=== PATIENT | male | born 1960 | race Caucasian/White ===

== ENCOUNTER → 2019-01-22 17:14 | Outpatient (CLI) | payer SELFPAY ==
[2019-01-22 17:25] LABS: Bacteria Urine None Seen
[2019-01-22 18:33] LABS: Add Manual Diff / Slide Review NO; Basophils Absolute Auto 0 /uL (0-100); Basophils Percent Auto 0.7 % (0-2); Eosinophils Absolute Auto 200 /uL (0-450); Hematocrit 44.5 % (41-53); Hemoglobin 14.7 g/dL (13.5-17.5); Lymphocytes Absolute Auto 1700 /uL (1100-4500); Lymphocytes Percent Auto 24.8 % (25-40); Mean Corpuscular HGB Conc 33.1 % (30-36); Mean Corpuscular Hemoglobin 29.2 PG (26-34); Mean Corpuscular Volume 88.1 fL (80-100); Monocytes Absolute Auto 700 /uL (0-900); Monocytes Percent Auto 10.1 % (3-14); Neutrophils Absolute Auto 4300 /uL (1500-7000); Neutrophils Percent Auto 61.4 % (50-75); Platelet Count 277 X10^3/uL (150-400); Red Blood Cell Count 5.05 X10^6/uL (4.5-5.9); Red Cell Distribution Width 13.2 % (11.6-14.8)
[2019-01-22 19:09] LABS: Alanine Aminotransferase 48 IU/L (21-72); Albumin 4.2 g/dL (3.5-5.0); Albumin Globulin Ratio 1.3 (1.0-2.8); Alkaline Phosphatase 68 U/L (38-126); Aspartate Aminotransferase 27 IU/L (17-59); BUN Creatinine Ratio 21.1 (6-22); Bilirubin Total 0.3 mg/dL (0.2-1.3); Blood Urea Nitrogen 19 mg/dL (9-20); Calcium 9.3 mg/dL (8.4-10.2); Carbon Dioxide 27 mmol/L (22-32); Chloride 104 mmol/L (98-107); Cholesterol 160 mg/dL (140-199); Estimated Glomerular Filt Rate > 60.0 mL/min (>60); Globulin 3.2 g/dL (1.7-4.1); Glucose 98 mg/dL (70-100); HDL Cholesterol 33 mg/dL (40-60); HEMOLYSIS < 15 (0-50); LDL Cholesterol Calculated 88 mg/dL (<100); Sodium 140 mmol/L (137-145); Total Protein 7.4 g/dL (6.3-8.2); Triglycerides 193 mg/dL (35-150)
[2019-01-22 19:10] LABS: Vitamin D 25 Hydroxy (D3) 34.8 ng/mL (30.0-100.0)
[2019-01-22 19:24] LABS: Thyroid Stimulating Hormone 2.98 uIU/mL (0.47-4.68)
[2019-01-22 19:35] LABS: Appearance Urine UA CLEAR; Bilirubin Urine UA NEGATIVE (NEGATIVE); Color Urine UA YELLOW; Glucose Urine UA NEGATIVE (Negative); Ketones Urine UA NEGATIVE (NEGATIVE); Leukocyte Esterase Urine UA NEGATIVE (NEGATIVE); Nitrite Urine UA NEGATIVE (Negative); Occult Blood Urine UA TRACE-LYSED (Negative); Protein Urine UA NEGATIVE (Negative); Specific Gravity Urine UA 1.025 (1.000-1.035); Urobilinogen Urine UA 0.2 E.U./dL (0.2); pH Urine UA 5.5 (4.5-8.0)
[2019-01-22 19:40] LABS: Prostate Specific Antigen Scrn 0.782 ng/mL (0.1-4.0)
[2019-01-22 19:59] LABS: Vitamin B12 425 pg/mL (239-931)
[2019-01-22 20:17] LABS: Culture Indicated Urine Cult Not Indicated; RBC Urine 0-1/HPF (0-5/HPF); Squamous Epithelial Cell Urine 0-1 /HPF; WBC Urine 0-1/HPF (0-5/HPF)
[2019-01-25 18:43] LABS: Albumin 3.9 g/dL (3.8-4.8); Alpha 1 Globulin 0.3 g/dL (0.2-0.3); Alpha 2 Globulin 0.6 g/dL (0.5-0.9); Beta 1 Globulin 0.5 g/dL (0.4-0.6); Gamma Globulin 1.3 g/dL (0.8-1.7)
== END ==
PROVIDERS: Visit Provider Internal Medicine
DX: I10 Essential (primary) hypertension (principal); R20.2 Paresthesia of skin; N40.1 Benign prostatic hyperplasia with lower urinary tract symptoms; M54.30 Sciatica, unspecified side
CPT/HCPCS: 36415; 80053; 80061; 81001; 82306; 82607; 84155; 84165; 84443; 85025; G0103

== ENCOUNTER → 2021-03-04 06:59 | Outpatient (CLI) | payer OTHER, SELFPAY ==
[2021-03-04 07:57] LABS: Alanine Aminotransferase 24 IU/L (<50); Albumin 4.1 g/dL (3.5-5.0); Albumin Globulin Ratio 1.2 (1.0-2.8); Alkaline Phosphatase 89 U/L (38-126); Aspartate Aminotransferase 29 IU/L (17-59); BUN Creatinine Ratio 17.4 (6-22); Bilirubin Total 0.8 mg/dL (0.2-1.3); Blood Urea Nitrogen 15 mg/dL (9-20); Calcium 9.3 mg/dL (8.4-10.2); Carbon Dioxide 26 mmol/L (22-32); Chloride 106 mmol/L (98-107); Cholesterol 146 mg/dL (140-199); Estimated Glomerular Filt Rate > 60.0 mL/min (>60); Globulin 3.3 g/dL (1.7-4.1); Glucose 100 mg/dL (80-110); HDL Cholesterol 32 mg/dL (40-60); HEMOLYSIS < 15 (0-50); LDL Cholesterol Calculated 90 mg/dL (<100); Potassium 4.1 mmol/L (3.4-5.1); Sodium 141 mmol/L (137-145); Total Protein 7.4 g/dL (6.3-8.2); Triglycerides 120 mg/dL (35-150)
[2021-03-04 09:17] LABS: Add Manual Diff / Slide Review NO; Basophils Absolute Auto 0 /uL (0-100); Basophils Percent Auto 0.8 % (0-2); Eosinophils Absolute Auto 200 /uL (0-450); Eosinophils Percent Auto 3.4 % (2-4); Hematocrit 42.8 % (41-53); Hemoglobin 14.2 g/dL (13.5-17.5); Lymphocytes Absolute Auto 1300 /uL (1100-4500); Lymphocytes Percent Auto 23.2 % (25-40); Mean Corpuscular HGB Conc 33.3 % (30-36); Mean Corpuscular Hemoglobin 29.4 PG (26-34); Mean Corpuscular Volume 88.2 fL (80-100); Monocytes Absolute Auto 700 /uL (0-900); Monocytes Percent Auto 11.3 % (3-14); Neutrophils Absolute Auto 3500 /uL (1500-7000); Neutrophils Percent Auto 61.3 % (50-75); Platelet Count 257 X10^3/uL (150-400); Red Blood Cell Count 4.85 X10^6/uL (4.5-5.9); Red Cell Distribution Width 13.3 % (11.6-14.8); White Blood Cell Count 5.8 X10^3/uL (4.5-11.0)
== END ==
PROVIDERS: PCP Family Medicine; Referring Provider Family Medicine; Visit Provider Family Medicine
DX: G47.33 Obstructive sleep apnea (adult) (pediatric) (principal); I10 Essential (primary) hypertension; Z12.5 Encounter for screening for malignant neoplasm of prostate; Z13.220 Encounter for screening for lipoid disorders; Z76.89 Persons encountering health services in other specified circumstances; Z99.89 Dependence on other enabling machines and devices
CPT/HCPCS: 36415; 80053; 80061; 85025; G0103

== ENCOUNTER 2024-12-31 09:27 | Outpatient (RCR) | payer BC, SELFPAY ==
--- NOTE | 2024-12-31 10:38 | OT.OP.DC ---
Visit Care Team Role Provider Type Sanaz Womack MD Attending Provider Physician Family Provider Primary Care Provider Referring Provider Address: 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 and R hand dominant; he was referred to outpatient OT by PCP d/t [id number]. Medical History is significant for back pain, blood pressure concerns, vision problems and stroke. 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 Most recent hospital stay was to 12/19/24. Andrew presents wearing pre-stroke prescription glasses; he reports diplopia has resolved and bilateral R hemianopsia w/ L eye hemianopsia beginning to resolve. He has not seen aerographer or neuro opthalmologist since stroke; no gait deviation was observed or weight shift sitting/head at midline in sitting. He reports he is struggling w/ reading. He has been evaluated by speech therapist; he reports word finding difficulties, reading comprehension difficulties, and executive function difficulties, relative to functional problem solving and sequencing. He will be evaluated by PT 01/06/25. He is ambulating without mobility AE ; no c/o w/ forward trunk flexion touching toes in sitting. Report of engaging in yoga previous date. He reports no difficulties w/ self care tasks; he is not driving per own choice. He completed Pain Assessment Grid and indciated 4 out of 10 on pain scale relative to R scapula, although, no c/o w/ UE AROM screening. He demonstrated bilateral UE AROM WFL; no errors w/ bilateral opposition w/ EO or EC. Dynamometer II Strength Testing Results with elbow in 90 degrees Flexion = R hot saw helper 110.0# of force (compared to same-aged peers 60-64 y.o. males 89.7 +/- 20.4# of force) versus L hot saw helper 98.0# of force (compared to same-aged peers 60-64 y.o. males 76.8 +/- 20.3 # of force). Lateral Tyler Pinch = R lateral pinch 25.0# of force (compared to same- aged peers 60-64 y.o. males 23 .2 +/- 5.4# of force) versus L lateral pinch 22.5# of force (compared to same-aged peers 60-64 y.o. males 22.2 +/- 4.1# of force). Tip Pinch = R tip pinch 13.0# of force (compared to same-aged peers 60-64 y.o. males 15.8 +/- 3.9# of force) versus L tip pinch 14.5# of force (compared to same-aged peers 60-64 y.o. males 15.3 +/ - 3.7# of force). 3-Jaw Pinch = R 3-jaw pinch 23.0# of force (compared to same-aged peers 60-64 y.o. males 21.8 +/- 3.3# of force) versus L 3-jaw pinch 19.0# of force (compared to same-aged peers 60-64 y.o. males 21.2 +/- 3.2# of force) . No further outpatient OT is needed at this time. Recommend d/c from outpatient OT. Plan Patient Recommendations Discharge from Occupational Therapy Functional Wrist/Hand Scan Hand Side Sensory Assessment Sensory Profile2
== END 2025-01-01 13:50 | disposition home or self-care (01) ==
LOC: OT 09:27
PROVIDERS: Family Provider Family Medicine; PCP Family Medicine; Referring Provider Family Medicine; Visit Provider Family Medicine
DX: I61.9 Nontraumatic intracerebral hemorrhage, unspecified (principal); R47.89 Other speech disturbances; I69.398 Other sequelae of cerebral infarction; H53.469 Homonymous bilateral field defects, unspecified side; H53.2 Diplopia
CPT/HCPCS: 97165

== ENCOUNTER 2025-02-05 10:45 | Outpatient (RCR) | payer BC, SELFPAY ==
--- NOTE | 2025-01-06 13:37 | PT.OIE ---
Current Diagnoses Diplopia (01/06/25) Homonymous bilateral field defects, unspecified side (01/06/25) Nontraumatic intracerebral hemorrhage, unspecified (01/06/25) Other sequelae of cerebral infarction (01/06/25) Other speech disturbances (01/06/25) Past Medical History (Last Updated 09/06/21 @ 12:04 by Tripp Robledo DO) Acute pain of left knee Allergies (~2005) BMI 32.0-32.9,adult Chronic back pain (~2018) Hypertension (~2009) Low HDL (under 40) Low libido WARREN on CPAP (~1999) Screening for hyperlipidemia Screening for prostate cancer Past Surgical History (Last Updated 03/14/21 @ 22:03 by Yesi Taylor) Anesthesia History of dental surgery (~2011) History of vasectomy (~2001) Visit Care Team Role Provider Type Sanaz Womack MD Attending Provider Physician Family Provider Primary Care Provider Referring Provider Specialty: Family Practice MUSIC PROMOTER Address: [address] [place] [address] Email: [email or web address] Physical Therapy Initial Evaluation PT-OP-A Visit Information Start: 01/04/25 08:47 Freq: Status: Active Protocol: Document 01/06/25 07:36 MB (Rec: 01/06/25 08:17 MB [id number]) Out-Patient Physical Therapy Visit Information Visit Information Visit Type Initial Evaluation Visit Note 25 visits split between PT/OT/ ST: no OT needs per pt and , goal is for speech and vision therapy. Speech may need more treatments and so will try to keep PT treatments between 4-6 treatments Visit Start Time 07:36 Visit Stop Time 08:16 Visit Number 1 PT-OP-B Current Condition Start: 01/04/25 08:47 Freq: Status: Active Protocol: Document 01/06/25 07:36 MB (Rec: 01/06/25 08:17 MB [id number]) Current Condition History of Current Condition Onset Date 12/12/24 Current Complaints Vision changes and speech problems, trouble with math and reading History of Current Condition reports that pt had 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 He was denied inpatient rehab d/t no acute OT needs. He has had OPOT consult and was discharged. He had OPSLP consult and he has four treatments schedued. Pt and state that his biggest problems are vision and speech. Pt reports that his balance is fair. He takes extra precaution when going down steps. Pt report double and blurred vision on the right side. states that he has hemianopsia. Pt has been out of work this month and he heads back tomorrow. 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 He has a history of spinal stenosis. does report foot drop on the right. Pt is sleeping more than usual. He is sleeping 9 hours a night and taking a 2 hour nap during the day. Treatment Goals Patient/Caregiver Goals Pt is not sure that he needs physical therapy. PT-OP-C Subjective Start: 01/04/25 08:47 Freq: Status: Active Protocol: Document 01/06/25 07:36 MB (Rec: 01/06/25 08:17 MB [id number]) OP-PT Subjective Patient Comments Patient Comments See history of current condition. PT-OP-D Balance Start: 01/04/25 08:47 Freq: Status: Active Protocol: Document 01/06/25 07:36 MB (Rec: 01/06/25 08:17 MB [id number]) OP-PT Balance Assessment Standing Balance Standing Balance Comments Pt standing: Romberg EO and EC both WNLs, increased sway with EC Magdaleno Fall Scale Copyright Permission PT-OP-G Mobility & Gait Start: 01/04/25 08:47 Freq: Status: Active Protocol: Document 01/06/25 07:36 MB (Rec: 01/06/25 08:17 MB [id number]) OP Gait Assessment Comments Gait Comments Mild whip of right leg and foot drop right foot with gait PT-OP-H Neuro Start: 01/06/25 08:29 Freq: Status: Active Protocol: Document 01/06/25 07:36 MB (Rec: 01/06/25 08:31 MB [id number]) Sensation Evaluation Comments Summary Comments Pt denies paresthesias Coordination Evaluation Upper Extremity Tests Left Finger to Finger Test Normal Performance Pronation/Supination Test Normal Performance Right Alternate Nose to Finger Test Minimal Impairment Pronation/Supination Test Normal Performance Lower Extremity Tests Left Heel on Parker Test Normal Performance Foot Tapping Test Normal Performance Right Heel on Parker Test Minimal Impairment Foot Tapping Test Normal Performance PT-OP-M Strength Start: 01/06/25 08:22 Freq: Status: Active Protocol: Document 01/06/25 07:36 MB (Rec: 01/06/25 08:28 MB [id number]) Hip Strength Hip Manual Muscle Testing Left Comments Peformed in sitting Right Flexion (L2) 5 Normal Comments Performed in sitting Knee Strength Knee Manual Muscle Testing Left Flexion (S2) 5 Normal Extension (L3) 5 Normal Comments Peformed in sitting Right Flexion (S2) 5 Normal Extension (L3) 5 Normal Comments Peformed in sitting Ankle/Foot Strength Ankle and Foot Manual Muscle Testing Left Dorsiflexion (L4) 5 Normal Right Dorsiflexion (L4) 4+ Good+ Toe Strength Toe Manual Muscle Testing Left Great Toe Extension 5 Normal Right Great Toe Extension 4+ Good+ PT-OP-Q Treatments Start: 01/04/25 08:47 Freq: Status: Active Protocol: Document 01/06/25 07:36 MB (Rec: 01/06/25 08:28 MB [id number]) Self-Care/Home Management Treatment Education Other Education Education to pt and about benefits of OPPT trial for balance and vision exercises, possible vision exercises by teammate PT who has had more vision training than this PT, benefits of neuropthalmologist consult to assess hemianopsia and possible prism glasses, clear with physician before driving, benefts of local community stroke support group PT-OP-T Assessment and Plan Start: 01/04/25 08:47 Freq: Status: Active Protocol: Document 01/06/25 07:36 MB (Rec: 01/06/25 08:28 MB [id number]) Physical Therapy Assessment Rehab Potential Rehabilitation Potential Good Evaluation Complexity Number of Personal Factors/Comorbidities 1-2 Number of Body Systems Impaired 1-2 Clinical Presentation at Evaluation Evolving Impairments Impairments Balance,Coordination,Gait,Pain ,Posture,ROM,Strength, Vestibular,Visual Motor Goals Two Impairment Lack of HEP Impairment . Short Term Goal (STG) . STG Duration . Half-Way Goal (LTG) Pt will perform progressive HEP with I including balance and visual exercises to improve balance and scanning. LTG Duration 4-6 treatments within 6 weeks One Impairment Evidence of imbalance Tractor Mechanic Helper Goal (LTG) Pt will perform WNLs on FGA to decrease fall risk. LTG Duration 4-6 treatments within 6 weeks Assessment Summary Assessment Pt is a 64 y/o male s/p left parieto-occipital IPH 12/12/24. He has residual right ankle and great to weakness, mild whip of leg and foot drop with gait and more severe right hemianopsia symptoms. Visual scan today reveals the ongoing vision issues. Pt will benefit from 4-6 PT treatments to work on balance and visual exercises. 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 Recommend neuro -opthamologist referral.
--- NOTE | 2025-01-06 13:37 | PT.OPPOC ---
Physical, Occupational & Speech Therapy At [facility] Current Diagnoses Diplopia (01/06/25) Homonymous bilateral field defects, unspecified side (01/06/25) Nontraumatic intracerebral hemorrhage, unspecified (01/06/25) Other sequelae of cerebral infarction (01/06/25) Other speech disturbances (01/06/25) Visit Care Team Role Provider Type Sanaz Womack MD Attending Provider Physician Family Provider Primary Care Provider Referring Provider Specialty: Family Practice WALL TAPER HELPER Address: [place], [address] Email: [email or web address] Plan Of Care PT-OP-B Current Condition Start: 01/04/25 08:47 Freq: Status: Active Protocol: Document 01/06/25 07:36 MB (Rec: 01/06/25 08:17 MB [id number]) Current Condition History of Current Condition Onset Date 12/12/24 Current Complaints Vision changes and speech problems, trouble with math and reading History of Current Condition reports that pt had 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 He was denied inpatient rehab d/t no acute OT needs. He has had OPOT consult and was discharged. He had OPSLP consult and he has four treatments schedued. Pt and state that his biggest problems are vision and speech. Pt reports that his balance is fair. He takes extra precaution when going down steps. Pt report double and blurred vision on the right side. states that he has hemianopsia. Pt has been out of work this month and he heads back tomorrow. 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 He has a history of spinal stenosis. does report foot drop on the right. Pt is sleeping more than usual. He is sleeping 9 hours a night and taking a 2 hour nap during the day. Treatment Goals Patient/Caregiver Goals Pt is not sure that he needs physical therapy. PT-OP-T Assessment and Plan Start: 01/04/25 08:47 Freq: Status: Active Protocol: Document 01/06/25 07:36 MB (Rec: 01/06/25 08:28 MB [id number]) Physical Therapy Assessment Rehab Potential Rehabilitation Potential Good Evaluation Complexity Number of Personal Factors/Comorbidities 1-2 Number of Body Systems Impaired 1-2 Clinical Presentation at Evaluation Evolving Impairments Impairments Balance,Coordination,Gait,Pain ,Posture,ROM,Strength, Vestibular,Visual Motor Goals Two Impairment Lack of HEP Impairment . Short Term Goal (STG) . STG Duration . Work Ticket Distributor Goal (LTG) Pt will perform progressive HEP with I including balance and visual exercises to improve balance and scanning. LTG Duration 4-6 treatments within 6 weeks One Impairment Evidence of imbalance Work Ticket Distributor Goal (LTG) Pt will perform WNLs on FGA to decrease fall risk. LTG Duration 4-6 treatments within 6 weeks Assessment Summary Assessment Pt is a 64 y/o male s/p left parieto-occipital IPH 12/12/24. He has residual right ankle and great to weakness, mild whip of leg and foot drop with gait and more severe right hemianopsia symptoms. Visual scan today reveals the ongoing vision issues. Pt will benefit from 4-6 PT treatments to work on balance and visual exercises. 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 Recommend neuro -opthamologist referral. Plan of Care Dates Plan of Care Start Date 01/06/25 Plan of Care End Date 02/24/25 Electronically Signed by: Viridiana Mcneil PT 01/06/25 [id number] If you are in agreement with this Plan of Care, please return a signed and dated copy. I have reviewed this Plan of Care and certify that the skilled therapy services above are required to meet the patient?s needs. Physician Signature Date Printed Name and Credentials Clinical Instructor Signature Printed Name and Credentials
--- NOTE | 2025-01-14 11:30 | PT.OTN ---
Current Diagnoses Diplopia (01/14/25) Homonymous bilateral field defects, unspecified side (01/14/25) Nontraumatic intracerebral hemorrhage, unspecified (01/14/25) Other sequelae of cerebral infarction (01/14/25) Other speech disturbances (01/14/25) Physical Therapy Treatment Note PT-OP-A Visit Information Start: 01/04/25 08:47 Freq: Status: Active Protocol: Document 01/14/25 10:42 MB (Rec: 01/14/25 11:30 MB [id number]) Out-Patient Physical Therapy Visit Information Visit Information Visit Type Treatment Note Visit Note is Aaliyah 25 visits split between PT/OT/ ST: no OT needs per pt and , goal is for speech and vision therapy. Speech may need more treatments and so will try to keep PT treatments between 4-6 treatments Visit Start Time 10:42 Visit Stop Time 11:12 Visit Number 2 Evaluation Information Evaluation Date 01/06/25 PT-OP-B Current Condition Start: 01/04/25 08:47 Freq: Status: Active Protocol: Document 01/06/25 07:36 MB (Rec: 01/06/25 08:17 MB [id number]) Current Condition History of Current Condition Onset Date 12/12/24 Current Complaints Vision changes and speech problems, trouble with math and reading History of Current Condition reports that pt had 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 He was denied inpatient rehab d/t no acute OT needs. He has had OPOT consult and was discharged. He had OPSLP consult and he has four treatments schedued. Pt and state that his biggest problems are vision and speech. Pt reports that his balance is fair. He takes extra precaution when going down steps. Pt report double and blurred vision on the right side. states that he has hemianopsia. Pt has been out of work this month and he heads back tomorrow. 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 He has a history of spinal stenosis. does report foot drop on the right. Pt is sleeping more than usual. He is sleeping 9 hours a night and taking a 2 hour nap during the day. Treatment Goals Patient/Caregiver Goals Pt is not sure that he needs physical therapy. 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 He did [place], an easy one very slowly. The vision on the right side is th biggest thing stopping him from seeing things. PT-OP-D Balance Start: 01/04/25 08:47 Freq: Status: Active Protocol: Document 01/06/25 07:36 MB (Rec: 01/06/25 08:17 MB [id number]) OP-PT Balance Assessment Standing Balance Standing Balance Comments Pt standing: Romberg EO and EC both WNLs, increased sway with EC Magdaleno Fall Scale Copyright Permission PT-OP-G Mobility & Gait Start: 01/04/25 08:47 Freq: Status: Active Protocol: Document 01/06/25 07:36 MB (Rec: 01/06/25 08:17 MB [id number]) OP Gait Assessment Comments Gait Comments Mild whip of right leg and foot drop right foot with gait PT-OP-H Neuro Start: 01/06/25 08:29 Freq: Status: Active Protocol: Document 01/06/25 07:36 MB (Rec: 01/06/25 08:31 MB [id number]) Sensation Evaluation Comments Summary Comments Pt denies paresthesias Coordination Evaluation Upper Extremity Tests Left Finger to Finger Test Normal Performance Pronation/Supination Test Normal Performance Right Alternate Nose to Finger Test Minimal Impairment Pronation/Supination Test Normal Performance Lower Extremity Tests Left Heel on Parker Test Normal Performance Foot Tapping Test Normal Performance Right Heel on Parker Test Minimal Impairment Foot Tapping Test Normal Performance PT-OP-M Strength Start: 01/06/25 08:22 Freq: Status: Active Protocol: Document 01/06/25 07:36 MB (Rec: 01/06/25 08:28 MB [id number]) Hip Strength Hip Manual Muscle Testing Left Comments Peformed in sitting Right Flexion (L2) 5 Normal Comments Performed in sitting Knee Strength Knee Manual Muscle Testing Left Flexion (S2) 5 Normal Extension (L3) 5 Normal Comments Peformed in sitting Right Flexion (S2) 5 Normal Extension (L3) 5 Normal Comments Peformed in sitting Ankle/Foot Strength Ankle and Foot Manual Muscle Testing Left Dorsiflexion (L4) 5 Normal Right Dorsiflexion (L4) 4+ Good+ Toe Strength Toe Manual Muscle Testing Left Great Toe Extension 5 Normal Right Great Toe Extension 4+ Good+ PT-OP-Q Treatments Start: 01/04/25 08:47 Freq: Status: Active Protocol: Document 01/14/25 10:42 MB (Rec: 01/14/25 11:30 MB [id number]) Neuro Re-Education Treatment Balance Activities SLS Details HEP and written on folder Comments Left 6 sec, right 7 sec, given for home exercise up for 1 minute FGA activites for home Details HEP and handout given Comments Practiced several and setted on the following sliding fingernail along the wall: 1 rep of each makes a set and pt to perform 4-5 sets once a day FGA Comments FGA score is 22/30, indicative of increased risk of falling with most trouble with gait with EC and tandem gait and needing to use rail for steps Movement Re-Education Movement Re-education Activities DVA eye chart reading from upper left to lower right eye chart letters, saying out loud and working inwards and working on pointing and coordination PT-OP-T Assessment and Plan Start: 01/04/25 08:47 Freq: Status: Active Protocol: Document 01/14/25 10:42 MB (Rec: 01/14/25 11:30 MB [id number]) Physical Therapy Assessment Rehab Potential Rehabilitation Potential Good Evaluation Complexity Number of Personal Factors/Comorbidities 1-2 Number of Body Systems Impaired 1-2 Clinical Presentation at Evaluation Evolving Impairments Impairments Balance,Coordination,Gait,Pain ,Posture,ROM,Strength, Vestibular,Visual Motor Goals Two Impairment Lack of HEP Impairment . Short Term Goal (STG) . STG Duration . Care Home Goal (LTG) Pt will perform progressive HEP with I including balance and visual exercises to improve balance and scanning. LTG Duration 4-6 treatments within 6 weeks One Impairment Evidence of imbalance Condemnation Engineer Goal (LTG) Pt will perform WNLs on FGA to decrease fall risk. LTG Duration 4-6 treatments within 6 weeks Assessment Summary Assessment Initiated visual scanning/ saccadic and balance exercises today. Discussed reading different fonts out loud and working on writing at home. Physical Therapy Plan Frequency and Duration Frequency of Treatment 4-6 treatments Duration of treatment (weeks) 6 Plan of Care Start Date 01/06/25 Plan of Care End Date 02/24/25 Therapeutic Interventions Therapeutic Interventions Balance Training,Canalithic Repositioning,Coordination Training,Gait Training,Home Exercise Program,Joint Mobilizations,Manual Therapy, Neuromuscular Re-education, Patient/Caregiver Education, Self-Care/Home Management,Soft Tissue Mobilization,Taping, Therapeutic Activities, Therapeutic Exercises, Vestibular Rehabilitation Modalities Cold Pack/Ice Massage,Electric Stimulation,Hot Packs Next Visit Focus/Plan Next Note Type Treatment Note Next Visit Plan Next (with DIE SETTER): [facility] balance program over next two treatments and determine appropriate ankle weight resistance and rec for pt and . Note: tandem walking forward and backward and SLS already in HEP. Please add hip extension with ankle weights after standing hip abduction in [place]: further visual work , possible Facundo string exercises, other saccadic and scanning work
--- NOTE | 2025-01-28 08:56 | PT.OTN ---
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/28/25) Nontraumatic intracerebral hemorrhage, unspecified (01/28/25) Other sequelae of cerebral infarction (01/28/25) Other speech disturbances (01/28/25) Physical Therapy Treatment Note PT-OP-A Visit Information Start: 01/04/25 08:47 Freq: Status: Active Protocol: Document 01/28/25 08:17 MB (Rec: 01/28/25 08:55 MB [id number]) Out-Patient Physical Therapy Visit Information Visit Information Visit Type Treatment Note Visit Note 25 visits split between PT/OT/ ST Prog note by 02/06/25 is Aaliyah Visit Start Time 08:17 Visit Stop Time 08:57 Visit Number 3 Evaluation Information Evaluation Date 01/06/25 PT-OP-B Current Condition Start: 01/04/25 08:47 Freq: Status: Active Protocol: Document 01/06/25 07:36 MB (Rec: 01/06/25 08:17 MB [id number]) Current Condition History of Current Condition Onset Date 12/12/24 Current Complaints Vision changes and speech problems, trouble with math and reading History of Current Condition reports that pt had 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 He was denied inpatient rehab d/t no acute OT needs. He has had OPOT consult and was discharged. He had OPSLP consult and he has four treatments schedued. Pt and state that his biggest problems are vision and speech. Pt reports that his balance is fair. He takes extra precaution when going down steps. Pt report double and blurred vision on the right side. states that he has hemianopsia. Pt has been out of work this month and he heads back tomorrow. 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 He has a history of spinal stenosis. does report foot drop on the right. Pt is sleeping more than usual. He is sleeping 9 hours a night and taking a 2 hour nap during the day. Treatment Goals Patient/Caregiver Goals Pt is not sure that he needs physical therapy. PT-OP-C Subjective Start: 01/04/25 08:47 Freq: Status: Active Protocol: Document 01/28/25 08:17 MB (Rec: 01/28/25 08:55 MB [id number]) OP-PT Subjective Patient Comments Patient Comments Pt saw an opthamologist but not a neuro opthamologist. That doctor stated that he did not need prisms. PT-OP-D Balance Start: 01/04/25 08:47 Freq: Status: Active Protocol: Document 01/06/25 07:36 MB (Rec: 01/06/25 08:17 MB [id number]) OP-PT Balance Assessment Standing Balance Standing Balance Comments Pt standing: Romberg EO and EC both WNLs, increased sway with EC Magdaleno Fall Scale Copyright Permission PT-OP-G Mobility & Gait Start: 01/04/25 08:47 Freq: Status: Active Protocol: Document 01/06/25 07:36 MB (Rec: 01/06/25 08:17 MB [id number]) OP Gait Assessment Comments Gait Comments Mild whip of right leg and foot drop right foot with gait PT-OP-H Neuro Start: 01/06/25 08:29 Freq: Status: Active Protocol: Document 01/06/25 07:36 MB (Rec: 01/06/25 08:31 MB [id number]) Sensation Evaluation Comments Summary Comments Pt denies paresthesias Coordination Evaluation Upper Extremity Tests Left Finger to Finger Test Normal Performance Pronation/Supination Test Normal Performance Right Alternate Nose to Finger Test Minimal Impairment Pronation/Supination Test Normal Performance Lower Extremity Tests Left Heel on Parker Test Normal Performance Foot Tapping Test Normal Performance Right Heel on Parker Test Minimal Impairment Foot Tapping Test Normal Performance PT-OP-M Strength Start: 01/06/25 08:22 Freq: Status: Active Protocol: Document 01/06/25 07:36 MB (Rec: 01/06/25 08:28 MB [id number]) Hip Strength Hip Manual Muscle Testing Left Comments Peformed in sitting Right Flexion (L2) 5 Normal Comments Performed in sitting Knee Strength Knee Manual Muscle Testing Left Flexion (S2) 5 Normal Extension (L3) 5 Normal Comments Peformed in sitting Right Flexion (S2) 5 Normal Extension (L3) 5 Normal Comments Peformed in sitting Ankle/Foot Strength Ankle and Foot Manual Muscle Testing Left Dorsiflexion (L4) 5 Normal Right Dorsiflexion (L4) 4+ Good+ Toe Strength Toe Manual Muscle Testing Left Great Toe Extension 5 Normal Right Great Toe Extension 4+ Good+ PT-OP-Q Treatments Start: 01/04/25 08:47 Freq: Status: Active Protocol: Document 01/28/25 08:17 MB (Rec: 01/28/25 08:55 MB [id number]) Therapeutic Exercises Sitting Exercises [place] knee extension Sitting Exercise Name HEP and handouts provided Equipment Used 2 lb ankle weights Reps/Minutes 30 alternating reps, 2 sets Standing Exercises [place] heel raises Standing Exercise Name HEP and handouts provided Equipment Used 2 lb ankle weights, ballet bar Reps/Minutes 30 reps Extension added with [place] Standing Exercise Name HEP and handouts provided Equipment Used 2 lb ankle weights, ballet bar Reps/Minutes 30 alternating reps, 2 sets [place] hamstring curls Standing Exercise Name HEP and handouts provided Equipment Used 2 lb ankle weights, ballet bar Reps/Minutes 30 alternating reps, 2 sets [place] hip abd Standing Exercise Name HEP and handouts provided Equipment Used 2 lb ankle weights, ballet bar Reps/Minutes 30 alternating reps, 2 sets PT-OP-T Assessment and Plan Start: 01/04/25 08:47 Freq: Status: Active Protocol: Document 01/28/25 08:17 MB (Rec: 01/28/25 08:55 MB [id number]) Physical Therapy Assessment Rehab Potential Rehabilitation Potential Good Evaluation Complexity Number of Personal Factors/Comorbidities 1-2 Number of Body Systems Impaired 1-2 Clinical Presentation at Evaluation Evolving Impairments Impairments Balance,Coordination,Gait,Pain ,Posture,ROM,Strength, Vestibular,Visual Motor Goals Two Impairment Lack of HEP Impairment . Short Term Goal (STG) . STG Duration . Communications Electrician Supervisor Goal (LTG) Pt will perform progressive HEP with I including balance and visual exercises to improve balance and scanning. LTG Duration 4-6 treatments within 6 weeks One Impairment Evidence of imbalance Alf Goal (LTG) Pt will perform WNLs on FGA to decrease fall risk. LTG Duration 4-6 treatments within 6 weeks Assessment Summary Assessment Initiated [facility] and will complete balance exercise training next treatment date. Pt to start with 2 lb ankle weights at home and nearby and performs exercises with AROM today as well. Physical Therapy Plan Frequency and Duration Frequency of Treatment 4-6 treatments Duration of treatment (weeks) 6 Plan of Care Start Date 01/06/25 Plan of Care End Date 02/24/25 Therapeutic Interventions Therapeutic Interventions Balance Training,Canalithic Repositioning,Coordination Training,Gait Training,Home Exercise Program,Joint Mobilizations,Manual Therapy, Neuromuscular Re-education, Patient/Caregiver Education, Self-Care/Home Management,Soft Tissue Mobilization,Taping, Therapeutic Activities, Therapeutic Exercises, Vestibular Rehabilitation Modalities Cold Pack/Ice Massage,Electric Stimulation,Hot Packs Next Visit Focus/Plan Next Note Type Treatment Note Next Visit Plan Complete [place] STS, squats balance exercises (all strengthening done) With River: consider chano string and any other visual exercises, defer to River and d /c as River feels appropriate, does not need all three visits if not needed and does not need to see Viridiana again.
--- NOTE | 2025-01-30 08:59 | PT.OTN ---
Current Diagnoses Diplopia (01/30/25) Homonymous bilateral field defects, unspecified side (01/30/25) Nontraumatic intracerebral hemorrhage, unspecified (01/30/25) Other sequelae of cerebral infarction (01/30/25) Other speech disturbances (01/30/25) Physical Therapy Treatment Note PT-OP-A Visit Information Start: 01/04/25 08:47 Freq: Status: Active Protocol: Document 01/30/25 08:19 SP (Rec: 01/30/25 09:02 SP [id number]) Out-Patient Physical Therapy Visit Information Visit Information Visit Type Treatment Note Visit Note 25 visits split between PT/OT/ ST Prog note by 02/06/25 is Aaliyah Visit Start Time 08:19 Visit Stop Time 08:59 Visit Number 4 Number of MULTI CARE TECHNICIAN Visits 1 Evaluation Information Evaluation Date 01/06/25 PT-OP-B Current Condition Start: 01/04/25 08:47 Freq: Status: Active Protocol: Document 01/06/25 07:36 MB (Rec: 01/06/25 08:17 MB [id number]) Current Condition History of Current Condition Onset Date 12/12/24 Current Complaints Vision changes and speech problems, trouble with math and reading History of Current Condition reports that pt had 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 He was denied inpatient rehab d/t no acute OT needs. He has had OPOT consult and was discharged. He had OPSLP consult and he has four treatments schedued. Pt and state that his biggest problems are vision and speech. Pt reports that his balance is fair. He takes extra precaution when going down steps. Pt report double and blurred vision on the right side. states that he has hemianopsia. Pt has been out of work this month and he heads back tomorrow. 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 He has a history of spinal stenosis. does report foot drop on the right. Pt is sleeping more than usual. He is sleeping 9 hours a night and taking a 2 hour nap during the day. Treatment Goals Patient/Caregiver Goals Pt is not sure that he needs physical therapy. PT-OP-C Subjective Start: 01/04/25 08:47 Freq: Status: Active Protocol: Document 01/30/25 08:19 SP (Rec: 01/30/25 09:02 SP [id number]) OP-PT Subjective Patient Comments Patient Comments Pt reported felt good after last tx. PT-OP-D Balance Start: 01/04/25 08:47 Freq: Status: Active Protocol: Document 01/06/25 07:36 MB (Rec: 01/06/25 08:17 MB [id number]) OP-PT Balance Assessment Standing Balance Standing Balance Comments Pt standing: Romberg EO and EC both WNLs, increased sway with EC Magdaleno Fall Scale Copyright Permission PT-OP-G Mobility & Gait Start: 01/04/25 08:47 Freq: Status: Active Protocol: Document 01/06/25 07:36 MB (Rec: 01/06/25 08:17 MB [id number]) OP Gait Assessment Comments Gait Comments Mild whip of right leg and foot drop right foot with gait PT-OP-H Neuro Start: 01/06/25 08:29 Freq: Status: Active Protocol: Document 01/06/25 07:36 MB (Rec: 01/06/25 08:31 MB [id number]) Sensation Evaluation Comments Summary Comments Pt denies paresthesias Coordination Evaluation Upper Extremity Tests Left Finger to Finger Test Normal Performance Pronation/Supination Test Normal Performance Right Alternate Nose to Finger Test Minimal Impairment Pronation/Supination Test Normal Performance Lower Extremity Tests Left Heel on Parker Test Normal Performance Foot Tapping Test Normal Performance Right Heel on Parker Test Minimal Impairment Foot Tapping Test Normal Performance PT-OP-M Strength Start: 01/06/25 08:22 Freq: Status: Active Protocol: Document 01/06/25 07:36 MB (Rec: 01/06/25 08:28 MB [id number]) Hip Strength Hip Manual Muscle Testing Left Comments Peformed in sitting Right Flexion (L2) 5 Normal Comments Performed in sitting Knee Strength Knee Manual Muscle Testing Left Flexion (S2) 5 Normal Extension (L3) 5 Normal Comments Peformed in sitting Right Flexion (S2) 5 Normal Extension (L3) 5 Normal Comments Peformed in sitting Ankle/Foot Strength Ankle and Foot Manual Muscle Testing Left Dorsiflexion (L4) 5 Normal Right Dorsiflexion (L4) 4+ Good+ Toe Strength Toe Manual Muscle Testing Left Great Toe Extension 5 Normal Right Great Toe Extension 4+ Good+ PT-OP-Q Treatments Start: 01/04/25 08:47 Freq: Status: Active Protocol: Document 01/30/25 08:19 SP (Rec: 01/30/25 09:02 SP [id number]) Therapeutic Exercises Sitting Exercises [place] Sit to Stands Sitting Exercise Name added with HO Equipment Used BIG chair arms across chest Reps/Minutes 10 reps [place] Mini squat Sitting Exercise Name added with HO Reps/Minutes 10 reps [place] knee extension Sitting Exercise Name HEP reviewed Equipment Used 2 lb ankle weights Reps/Minutes 30 alternating reps, 2 sets Standing Exercises [place] heel raises Standing Exercise Name HEP reviewed Equipment Used 2 lb ankle weights, ballet bar Reps/Minutes 30 reps Extension added with [place] Standing Exercise Name HEP reviewed Equipment Used 2 lb ankle weights, ballet bar Reps/Minutes 30 alternating reps, 2 sets [place] hamstring curls Standing Exercise Name HEP reviewed Equipment Used 2 lb ankle weights, ballet bar Reps/Minutes 30 alternating reps, 2 sets [place] hip abd Standing Exercise Name HEP reviewed Equipment Used 2 lb ankle weights, ballet bar Reps/Minutes 30 alternating reps, 2 sets Neuro Re-Education Treatment Balance Activities [place] Figure 8 Comments around chair change of direction- good balance [place] Heel, Toe Walking Reps/Duration 20 ft x2 laps [place] Tight Rope Walking Reps/Duration 10 ft x2 laps Comments arms [place] SLS Comments L 8 sec R 13 sec [place] Tandem Reps/Duration 30 sec Comments each foot position PT-OP-T Assessment and Plan Start: 01/04/25 08:47 Freq: Status: Active Protocol: Document 01/30/25 08:19 SP (Rec: 01/30/25 09:02 SP [id number]) Physical Therapy Assessment Goals Two Impairment Lack of HEP Impairment . Short Term Goal (STG) . STG Duration . Beam Racker Goal (LTG) Pt will perform progressive HEP with I including balance and visual exercises to improve balance and scanning. LTG Duration 4-6 treatments within 6 weeks One Impairment Evidence of imbalance Skilled Nursing Goal (LTG) Pt will perform WNLs on FGA to decrease fall risk. LTG Duration 4-6 treatments within 6 weeks Assessment Summary Assessment Pt good effort with [place] HEP progressed to squats and balance walking drills addition today with slight sways: tandem and SLS but no LOB. Will progress at home. Pt is set up witho PT next to progress Vestibular and vision PT. Physical Therapy Plan Frequency and Duration Frequency of Treatment 4-6 treatments Duration of treatment (weeks) 6 Plan of Care Start Date 01/06/25 Plan of Care End Date 02/24/25 Therapeutic Interventions Therapeutic Interventions Balance Training,Canalithic Repositioning,Coordination Training,Gait Training,Home Exercise Program,Joint Mobilizations,Manual Therapy, Neuromuscular Re-education, Patient/Caregiver Education, Self-Care/Home Management,Soft Tissue Mobilization,Taping, Therapeutic Activities, Therapeutic Exercises, Vestibular Rehabilitation Modalities Cold Pack/Ice Massage,Electric Stimulation,Hot Packs Next Visit Focus/Plan Next Note Type Treatment Note Next Visit Plan PT River to continue PT consider chano string and any other visual exercises
--- NOTE | 2025-02-02 12:16 | PT.OTN ---
Current Diagnoses Diplopia (02/02/25) Homonymous bilateral field defects, unspecified side (02/02/25) Nontraumatic intracerebral hemorrhage, unspecified (02/02/25) Other sequelae of cerebral infarction (02/02/25) Other speech disturbances (02/02/25) Physical Therapy Treatment Note PT-OP-A Visit Information Start: 01/04/25 08:47 Freq: Status: Active Protocol: Document 02/02/25 10:45 DCW (Rec: 02/02/25 11:32 DCW [id number]) Out-Patient Physical Therapy Visit Information Visit Information Visit Type Progress Note Visit Note 25 visits split between PT/OT/ ST Prog note by 02/06/25 is Aaliyah Visit Start Time 10:45 Visit Stop Time 11:30 Visit Number 5 Number of VENDING MACHINE SERVICER Visits 0 Evaluation Information Evaluation Date 01/06/25 PT-OP-B Current Condition Start: 01/04/25 08:47 Freq: Status: Active Protocol: Document 01/06/25 07:36 MB (Rec: 01/06/25 08:17 MB [id number]) Current Condition History of Current Condition Onset Date 12/12/24 Current Complaints Vision changes and speech problems, trouble with math and reading History of Current Condition reports that pt had 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 He was denied inpatient rehab d/t no acute OT needs. He has had OPOT consult and was discharged. He had OPSLP consult and he has four treatments schedued. Pt and state that his biggest problems are vision and speech. Pt reports that his balance is fair. He takes extra precaution when going down steps. Pt report double and blurred vision on the right side. states that he has hemianopsia. Pt has been out of work this month and he heads back tomorrow. 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 He has a history of spinal stenosis. does report foot drop on the right. Pt is sleeping more than usual. He is sleeping 9 hours a night and taking a 2 hour nap during the day. Treatment Goals Patient/Caregiver Goals Pt is not sure that he needs physical therapy. PT-OP-C Subjective Start: 01/04/25 08:47 Freq: Status: Active Protocol: Document 02/02/25 10:45 DCW (Rec: 02/02/25 11:32 DCW [id number]) OP-PT Subjective Patient Comments Patient Comments Pt feels like he has made some great progress over the past month, but is still limited, has made the decision to not drive. Continues to struggle most with reading and writing, with some cognition. PT-OP-D Balance Start: 01/04/25 08:47 Freq: Status: Active Protocol: Document 01/06/25 07:36 MB (Rec: 01/06/25 08:17 MB [id number]) OP-PT Balance Assessment Standing Balance Standing Balance Comments Pt standing: Romberg EO and EC both WNLs, increased sway with EC Magdaleno Fall Scale Copyright Permission PT-OP-G Mobility & Gait Start: 01/04/25 08:47 Freq: Status: Active Protocol: Document 01/06/25 07:36 MB (Rec: 01/06/25 08:17 MB [id number]) OP Gait Assessment Comments Gait Comments Mild whip of right leg and foot drop right foot with gait PT-OP-H Neuro Start: 01/06/25 08:29 Freq: Status: Active Protocol: Document 01/06/25 07:36 MB (Rec: 01/06/25 08:31 MB [id number]) Sensation Evaluation Comments Summary Comments Pt denies paresthesias Coordination Evaluation Upper Extremity Tests Left Finger to Finger Test Normal Performance Pronation/Supination Test Normal Performance Right Alternate Nose to Finger Test Minimal Impairment Pronation/Supination Test Normal Performance Lower Extremity Tests Left Heel on Parker Test Normal Performance Foot Tapping Test Normal Performance Right Heel on Parker Test Minimal Impairment Foot Tapping Test Normal Performance PT-OP-M Strength Start: 01/06/25 08:22 Freq: Status: Active Protocol: Document 01/06/25 07:36 MB (Rec: 01/06/25 08:28 MB [id number]) Hip Strength Hip Manual Muscle Testing Left Comments Peformed in sitting Right Flexion (L2) 5 Normal Comments Performed in sitting Knee Strength Knee Manual Muscle Testing Left Flexion (S2) 5 Normal Extension (L3) 5 Normal Comments Peformed in sitting Right Flexion (S2) 5 Normal Extension (L3) 5 Normal Comments Peformed in sitting Ankle/Foot Strength Ankle and Foot Manual Muscle Testing Left Dorsiflexion (L4) 5 Normal Right Dorsiflexion (L4) 4+ Good+ Toe Strength Toe Manual Muscle Testing Left Great Toe Extension 5 Normal Right Great Toe Extension 4+ Good+ PT-OP-O Vestibular Start: 02/02/25 11:32 Freq: Status: Active Protocol: Document 02/02/25 10:45 DCW (Rec: 02/02/25 12:16 DCW [id number]) Vestibular Assessment Visual Testing Facundo String Test Impaired Convergence Test 40 cm Spontaneous Nystagmus Positive Comments Vestibular Comments Decreased convergence, right eye decreased response PT-OP-Q Treatments Start: 01/04/25 08:47 Freq: Status: Active Protocol: Document 02/02/25 10:45 DCW (Rec: 02/02/25 11:32 DCW [id number]) Neuro Re-Education Treatment Vestibular Rehabilitation Pencil Push-ups Details Pencil Push-ups Corrective Saccades Details Eyes, then head X2 Viewing Details head and eyes moving in opposite directions X1 Viewing Details Static target, head turns VOR Retraining Details hrad and target moving together PT-OP-T Assessment and Plan Start: 01/04/25 08:47 Freq: Status: Active Protocol: Document 02/02/25 10:45 DCW (Rec: 02/02/25 12:16 DCW [id number]) Physical Therapy Assessment Rehab Potential Rehabilitation Potential Good Impairments Impairments Balance,Coordination,Gait,Pain ,Posture,ROM,Strength, Vestibular,Visual Motor Goals Two Impairment Lack of HEP Soil Science Technical Officer Goal (LTG) Pt will perform progressive HEP with I including balance and visual exercises to improve balance and scanning. LTG Duration 4-6 treatments within 6 weeks One Impairment Evidence of imbalance Soil Science Technical Officer Goal (LTG) Pt will perform WNLs on FGA to decrease fall risk. LTG Duration 4-6 treatments within 6 weeks Assessment Summary Assessment Pt demonstrated good response to new oculomotor exercises today. Does demonstrate decreased ability to perform convergence, decreased right eye oculomotor function. Pt does exhibited some continuing deficits in right visual field, but is demonstrating some returning function. Physical Therapy Plan Frequency and Duration Frequency of Treatment 1-2x/week Plan of Care Start Date 02/02/25 Plan of Care End Date 03/04/25 Therapeutic Interventions Therapeutic Interventions Balance Training,Canalithic Repositioning,Coordination Training,Gait Training,Home Exercise Program,Joint Mobilizations,Manual Therapy, Neuromuscular Re-education, Patient/Caregiver Education, Self-Care/Home Management,Soft Tissue Mobilization,Taping, Therapeutic Activities, Therapeutic Exercises, Vestibular Rehabilitation Modalities Cold Pack/Ice Massage,Electric Stimulation,Hot Packs Next Visit Focus/Plan Next Note Type Treatment Note Next Visit Plan Oculomotor exercises, visual field training
--- NOTE | 2025-02-02 12:17 | PT.OPPOC ---
Physical, Occupational & Speech Therapy At 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 He was denied inpatient rehab d/t no acute OT needs. He has had OPOT consult and was discharged. He had OPSLP consult and he has four treatments schedued. Pt and state that his biggest problems are vision and speech. Pt reports that his balance is fair. He takes extra precaution when going down steps. Pt report double and blurred vision on the right side. states that he has hemianopsia. Pt has been out of work this month and he heads back tomorrow. 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 He has a history of spinal stenosis. does report foot drop on the right. Pt is sleeping more than usual. He is sleeping 9 hours a night and taking a 2 hour nap during the day. Treatment Goals Patient/Caregiver Goals Pt is not sure that he needs physical therapy. PT-OP-T Assessment and Plan Start: 01/04/25 08:47 Freq: Status: Active Protocol: Document 02/02/25 10:45 DCW (Rec: 02/02/25 12:16 DCW [id number]) Physical Therapy Assessment Rehab Potential Rehabilitation Potential Good Impairments Impairments Balance,Coordination,Gait,Pain ,Posture,ROM,Strength, Vestibular,Visual Motor Goals Two Impairment Lack of HEP [facility] Goal (LTG) Pt will perform progressive HEP with I including balance and visual exercises to improve balance and scanning. LTG Duration 4-6 treatments within 6 weeks One Impairment Evidence of imbalance Steward/Stewardess [employer] Class Goal (LTG) Pt will perform WNLs on FGA to decrease fall risk. LTG Duration 4-6 treatments within 6 weeks Assessment Summary Assessment Pt demonstrated good response to new oculomotor exercises today. Does demonstrate decreased ability to perform convergence, decreased right eye oculomotor function. Pt does exhibited some continuing deficits in right visual field, but is demonstrating some returning function. Physical Therapy Plan Frequency and Duration Frequency of Treatment 1-2x/week Plan of Care Start Date 02/02/25 Plan of Care End Date 03/04/25 Therapeutic Interventions Therapeutic Interventions Balance Training,Canalithic Repositioning,Coordination Training,Gait Training,Home Exercise Program,Joint Mobilizations,Manual Therapy, Neuromuscular Re-education, Patient/Caregiver Education, Self-Care/Home Management,Soft Tissue Mobilization,Taping, Therapeutic Activities, Therapeutic Exercises, Vestibular Rehabilitation Modalities Cold Pack/Ice Massage,Electric Stimulation,Hot Packs Next Visit Focus/Plan Next Note Type Treatment Note Next Visit Plan Oculomotor exercises, visual field training Plan of Care Dates Plan of Care Start Date 02/02/25 Plan of Care End Date 03/04/25 Electronically Signed by: Wes Mujica, PT 02/02/25 [id number] If you are in agreement with this Plan of Care, please return a signed and dated copy. I have reviewed this Plan of Care and certify that the skilled therapy services above are required to meet the patient?s needs. Physician Signature Date Printed Name and Credentials Clinical Instructor Signature Printed Name and Credentials
--- NOTE | 2025-02-05 11:31 | PT.OTN ---
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) Other speech disturbances (02/05/25) Physical Therapy Treatment Note PT-OP-A Visit Information Start: 01/04/25 08:47 Freq: Status: Active Protocol: Document 02/05/25 10:45 DCW (Rec: 02/05/25 11:31 DCW [id number]) Out-Patient Physical Therapy Visit Information Visit Information Visit Type Treatment Note Visit Note 25 visits split between PT/OT/ ST is Aaliyah Visit Start Time 10:45 Visit Stop Time 11:30 Visit Number 6 Number of RETAIL SECURITY PROFESSIONAL Visits 0 Evaluation Information Evaluation Date 01/06/25 PT-OP-B Current Condition Start: 01/04/25 08:47 Freq: Status: Active Protocol: Document 01/06/25 07:36 MB (Rec: 01/06/25 08:17 MB [id number]) Current Condition History of Current Condition Onset Date 12/12/24 Current Complaints Vision changes and speech problems, trouble with math and reading History of Current Condition reports that pt had 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 He was denied inpatient rehab d/t no acute OT needs. He has had OPOT consult and was discharged. He had OPSLP consult and he has four treatments schedued. Pt and state that his biggest problems are vision and speech. Pt reports that his balance is fair. He takes extra precaution when going down steps. Pt report double and blurred vision on the right side. states that he has hemianopsia. Pt has been out of work this month and he heads back tomorrow. 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 He has a history of spinal stenosis. does report foot drop on the right. Pt is sleeping more than usual. He is sleeping 9 hours a night and taking a 2 hour nap during the day. Treatment Goals Patient/Caregiver Goals Pt is not sure that he needs physical therapy. PT-OP-C Subjective Start: 01/04/25 08:47 Freq: Status: Active Protocol: Document 02/05/25 10:45 DCW (Rec: 02/05/25 11:31 DCW [id number]) OP-PT Subjective Patient Comments Patient Comments Pt has been mildly compliant with his new exercises. PT-OP-D Balance Start: 01/04/25 08:47 Freq: Status: Active Protocol: Document 01/06/25 07:36 MB (Rec: 01/06/25 08:17 MB [id number]) OP-PT Balance Assessment Standing Balance Standing Balance Comments Pt standing: Romberg EO and EC both WNLs, increased sway with EC Magdaleno Fall Scale Copyright Permission PT-OP-G Mobility & Gait Start: 01/04/25 08:47 Freq: Status: Active Protocol: Document 01/06/25 07:36 MB (Rec: 01/06/25 08:17 MB [id number]) OP Gait Assessment Comments Gait Comments Mild whip of right leg and foot drop right foot with gait PT-OP-H Neuro Start: 01/06/25 08:29 Freq: Status: Active Protocol: Document 01/06/25 07:36 MB (Rec: 01/06/25 08:31 MB [id number]) Sensation Evaluation Comments Summary Comments Pt denies paresthesias Coordination Evaluation Upper Extremity Tests Left Finger to Finger Test Normal Performance Pronation/Supination Test Normal Performance Right Alternate Nose to Finger Test Minimal Impairment Pronation/Supination Test Normal Performance Lower Extremity Tests Left Heel on Parker Test Normal Performance Foot Tapping Test Normal Performance Right Heel on Pakrer Test Minimal Impairment Foot Tapping Test Normal Performance PT-OP-M Strength Start: 01/06/25 08:22 Freq: Status: Active Protocol: Document 01/06/25 07:36 MB (Rec: 01/06/25 08:28 MB [id number]) Hip Strength Hip Manual Muscle Testing Left Comments Peformed in sitting Right Flexion (L2) 5 Normal Comments Performed in sitting Knee Strength Knee Manual Muscle Testing Left Flexion (S2) 5 Normal Extension (L3) 5 Normal Comments Peformed in sitting Right Flexion (S2) 5 Normal Extension (L3) 5 Normal Comments Peformed in sitting Ankle/Foot Strength Ankle and Foot Manual Muscle Testing Left Dorsiflexion (L4) 5 Normal Right Dorsiflexion (L4) 4+ Good+ Toe Strength Toe Manual Muscle Testing Left Great Toe Extension 5 Normal Right Great Toe Extension 4+ Good+ PT-OP-O Vestibular Start: 02/02/25 11:32 Freq: Status: Active Protocol: Document 02/02/25 10:45 DCW (Rec: 02/02/25 12:16 DC [id number]) Vestibular Assessment Visual Testing Facundo String Test Impaired Convergence Test 40 cm Spontaneous Nystagmus Positive Comments Vestibular Comments Decreased convergence, right eye decreased response PT-OP-Q Treatments Start: 01/04/25 08:47 Freq: Status: Active Protocol: Document 02/05/25 10:45 DCW (Rec: 02/05/25 11:31 [facility] [id number]) Neuro Re-Education Treatment Balance Activities Dynamic Gait Details Hallway ambulation Comments Horizontal, Vertical, [place] head turns Vestibular Rehabilitation Targets Details Laser on Visual conflict board Position Standing on AirEx Comments Horizontal, Vertical, Diagonal Maze Signature Chain Reading Details Chain Reading Position Standing Comments Head turns, easy chart, 7 errors NUNES Chart Details NUNES Chart Speed as tolerated Position Seated Comments 11 errors Pencil Push-ups Details Pencil Push-ups PT-OP-T Assessment and Plan Start: 01/04/25 08:47 Freq: Status: Active Protocol: Document 02/05/25 10:45 DCW (Rec: 02/05/25 11:31 [facility] [id number]) Physical Therapy Assessment Impairments Impairments Balance,Coordination,Gait,Pain ,Posture,ROM,Strength, Vestibular,Visual Motor Goals Two Impairment Lack of HEP Residential Goal (LTG) Pt will perform progressive HEP with I including balance and visual exercises to improve balance and scanning. LTG Duration 4-6 treatments within 6 weeks One Impairment Evidence of imbalance [place] Line Goal (LTG) Pt will perform WNLs on FGA to decrease fall risk. LTG Duration 4-6 treatments within 6 weeks Assessment Summary Assessment Good tolerance to activity today, feeling more comfortable with HEP. Hoping to get further authorization for follow-up PT visits Physical Therapy Plan Frequency and Duration Frequency of Treatment 1-2x/week Plan of Care Start Date 02/02/25 Plan of Care End Date 03/04/25 Therapeutic Interventions Therapeutic Interventions Balance Training,Canalithic Repositioning,Coordination Training,Gait Training,Home Exercise Program,Joint Mobilizations,Manual Therapy, Neuromuscular Re-education, Patient/Caregiver Education, Self-Care/Home Management,Soft Tissue Mobilization,Taping, Therapeutic Activities, Therapeutic Exercises, Vestibular Rehabilitation Modalities Cold Pack/Ice Massage,Electric Stimulation,Hot Packs Next Visit Focus/Plan Next Note Type Treatment Note Next Visit Plan Oculomotor exercises, visual field training
--- NOTE | 2025-06-01 11:43 | PT.OPDS ---
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) Other speech disturbances (02/05/25) Visit Care Team Role Provider Type Sanaz Womack MD Attending Provider Physician Family Provider Primary Care Provider Referring Provider Specialty: [facility] RELEASE OF INFORMATION SPECIALIST Address: [address] [place] [address], [id number] Email: [email or web address] Visit Number Visit Number 6 Discharge Summary PT-OP-B Current Condition Start: 01/04/25 08:47 Freq: Status: Active Protocol: Document 01/06/25 07:36 MB (Rec: 01/06/25 08:17 MB [id number]) Current Condition History of Current Condition Onset Date 12/12/24 Current Complaints Vision changes and speech problems, trouble with math and reading History of Current reports that pt had left parietal occipital IPH Condition stroke on 12/12/24. He was denied inpatient rehab d/t no acute OT needs. He has had OPOT consult and was discharged. He had OPSLP consult and he has four treatments schedued. Pt and state that his biggest problems are vision and speech. Pt reports that his balance is fair. He takes extra precaution when going down steps. Pt report double and blurred vision on the right side. states that he has hemianopsia. Pt has been out of work this month and he heads back tomorrow. 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 He has a history of spinal stenosis. does report foot drop on the right. Pt is sleeping more than usual. He is sleeping 9 hours a night and taking a 2 hour nap during the day. Treatment Goals Patient/Caregiver Pt is not sure that he needs physical therapy. Goals PT-OP-C Subjective Start: 01/04/25 08:47 Freq: Status: Active Protocol: Document 02/05/25 10:45 DCW (Rec: 02/05/25 11:31 DCW [id number]) OP-PT Subjective Patient Comments Patient Comments Pt has been mildly compliant with his new exercises. PT-OP-D Balance Start: 01/04/25 08:47 Freq: Status: Active Protocol: Document 01/06/25 07:36 MB (Rec: 01/06/25 08:17 MB [id number]) OP-PT Balance Assessment Standing Balance Standing Balance Pt standing: Romberg EO and EC both WNLs, increased Comments sway with EC Magdaleno Fall Scale Copyright Permission PT-OP-G Mobility & Gait Start: 01/04/25 08:47 Freq: Status: Active Protocol: Document 01/06/25 07:36 MB (Rec: 01/06/25 08:17 MB [id number]) OP Gait Assessment Comments Gait Comments Mild whip of right leg and foot drop right foot with gait PT-OP-H Neuro Start: 01/06/25 08:29 Freq: Status: Active Protocol: Document 01/06/25 07:36 MB (Rec: 01/06/25 08:31 MB [id number]) Sensation Evaluation Comments Summary Comments Pt denies paresthesias Coordination Evaluation Upper Extremity Tests Left Finger to Finger Normal Performance Test Pronation/Supination Normal Performance Test Right Alternate Nose to Minimal Impairment Finger Test Pronation/Supination Normal Performance Test Lower Extremity Tests Left Heel on Parker Test Normal Performance Foot Tapping Test Normal Performance Right Heel on Parker Test Minimal Impairment Foot Tapping Test Normal Performance PT-OP-M Strength Start: 01/06/25 08:22 Freq: Status: Active Protocol: Document 01/06/25 07:36 MB (Rec: 01/06/25 08:28 MB [id number]) Hip Strength Hip Manual Muscle Testing Left Comments Peformed in sitting Right Flexion (L2) 5 Normal Comments Performed in sitting Knee Strength Knee Manual Muscle Testing Left Flexion (S2) 5 Normal Extension (L3) 5 Normal Comments Peformed in sitting Right Flexion (S2) 5 Normal Extension (L3) 5 Normal Comments Peformed in sitting Ankle/Foot Strength Ankle and Foot Manual Muscle Testing Left Dorsiflexion (L4) 5 Normal Right Dorsiflexion (L4) 4+ Good+ Toe Strength Toe Manual Muscle Testing Left Great Toe Extension 5 Normal Right Great Toe Extension 4+ Good+ PT-OP-O Vestibular Start: 02/02/25 11:32 Freq: Status: Active Protocol: Document 02/02/25 10:45 DCW (Rec: 02/02/25 12:16 DCW [id number]) Vestibular Assessment Visual Testing Facundo String Test Impaired Convergence Test 40 cm Spontaneous Positive Nystagmus Comments Vestibular Comments Decreased convergence, right eye decreased response PT-OP-T Assessment and Plan Start: 01/04/25 08:47 Freq: Status: Active Protocol: Document 06/01/25 11:42 DCW (Rec: 06/01/25 11:43 [facility] [id number]) Physical Therapy Assessment Assessment Summary Assessment Pt is no longer attending physical therapy. POC has , pt has not been seen in more than three months . Pt will be discharged from skilled therapy at this time. Physical Therapy Plan Discharge Physical Therapy Discharge Reasons No Longer Attending PT
== END 2025-06-01 14:49 | disposition home or self-care (01) ==
LOC: PHYS 10:45
PROVIDERS: Family Provider Family Medicine; PCP Family Medicine; Referring Provider Family Medicine; Visit Provider Family Medicine
DX: I61.9 Nontraumatic intracerebral hemorrhage, unspecified (principal); R47.89 Other speech disturbances; I69.398 Other sequelae of cerebral infarction; H53.469 Homonymous bilateral field defects, unspecified side; H53.2 Diplopia
CPT/HCPCS: 97110; 97112; 97162; 97535

== ENCOUNTER → 2025-02-26 06:56 | Outpatient (CLI) | payer BC, SELFPAY ==
[2025-02-26 08:12] LABS: Alanine Aminotransferase 30 IU/L (<50); Albumin 4.2 g/dL (3.5-5.0); Albumin Globulin Ratio 1.4 (1.0-2.8); Alkaline Phosphatase 72 U/L (38-126); Aspartate Aminotransferase 30 IU/L (17-59); BUN Creatinine Ratio 20.2 (6-22); Bilirubin Total 0.6 mg/dL (0.2-1.3); Blood Urea Nitrogen 24 mg/dL (9-20); Calcium 9.5 mg/dL (8.4-10.2); Carbon Dioxide 27 mmol/L (22-32); Chloride 104 mmol/L (98-107); Cholesterol 174 mg/dL (140-199); Estimated Glomerular Filt Rate > 60 mL/min (>60); Globulin 3.1 g/dL (1.7-4.1); Glucose 103 mg/dL (70-99); HDL Cholesterol 32 mg/dL (40-60); HEMOLYSIS < 15 (0-50); LDL Cholesterol Calculated 115 mg/dL (<100); Potassium 5.1 mmol/L (3.4-5.1); Sodium 138 mmol/L (137-145); Total Protein 7.3 g/dL (6.3-8.2); Triglycerides 134 mg/dL (35-150)
[2025-02-26 09:00] LABS: Vitamin B12 334 pg/mL (239-931)
[2025-02-27 04:08] LABS: CRP, High Sensitivity 0.68 mg/L (0.00-3.00)
[2025-02-27 06:36] LABS: Insulin Level Total 12.6 uIU/mL (2.6-24.9)
== END ==
PROVIDERS: Family Provider Family Medicine; PCP Family Medicine; Referring Provider Family Medicine; Visit Provider Family Medicine
DX: Z12.5 Encounter for screening for malignant neoplasm of prostate (principal); Z13.220 Encounter for screening for lipoid disorders; I61.9 Nontraumatic intracerebral hemorrhage, unspecified; E78.6 Lipoprotein deficiency; I10 Essential (primary) hypertension; Z68.32 Body mass index [BMI] 32.0-32.9, adult
CPT/HCPCS: 36415; 80053; 80061; 82306; 82607; 83525; 86140